=== PATIENT | male | born 1960 | race Caucasian/White ===

== ENCOUNTER 2018-02-24 14:04 | Emergency (ER) | payer BC ==
[2018-02-24 15:16] VITALS: RESP 16; TEMP 97.8
[2018-02-24] MEDS ORDERED: MECLIZINE 25 MG TAB PO STA (17:36)
[2018-02-24] MEDS ORDERED: SODIUM CHLORIDE 0.9% 1,000 ML IV ONE (17:36)
[2018-02-24 17:45] LABS: Basophils # (A) 0.1 k/uL (0-0.2); Basophils % (A) 1 %; Eosinophils # (A) 0.2 k/uL (0-0.7); Eosinophils % (A) 2 %; HCT 53.5 % (39.0-53.0); HGB 17.2 gm/dL (13.0-17.5); Lymphocytes # (A) 2.2 k/uL (1.0-4.8); Lymphocytes % (A) 21 %; MCH 31.3 pg (25.0-35.0); MCHC 32.2 g/dL (31.0-37.0); MCV 97.3 fL (80.0-100.0); Mean Platelet Volume 6.3; Monocytes # (A) 0.4 k/uL (0-1.0); Monocytes % (A) 4 %; Neutrophils # (A) 7.4 k/uL (1.3-7.7); Neutrophils % (A) 71 %; Platelet Count 362 k/uL (150-450); RDW 14.3 % (11.5-15.5); WBC 10.4 k/uL (3.8-10.6)
[2018-02-24 17:48] LABS: Prothrombin Time 10.1 sec (9.0-12.0)
--- NOTE | 2018-02-24 17:51 | ED ---
Dizziness HPI - General Chief Complaint: Dizziness Stated Complaint: Dizzy Time Seen by Provider: 02/24/18 17:35 Source: patient, RN notes reviewed Mode of arrival: wheelchair Limitations: no limitations - History of Present Illness Initial Comments: This is a 57-year-old male presents emergency Department with chief complaint of dizziness. Patient states that initially started on but woke up finding felt better but symptoms returned again today. Patient states that is much worse when he tries to move. He states it is better at rest. Patient did start recently have a headache in the right posterior aspect. Patient states this started after symptoms of dizziness. He denies any blurred vision. He has had some nausea denies chest pain, shortness of breath, focal weakness, fever, chills no recent URI symptoms. Patient does take medication currently for hypertension. Patient denies any palpitations, abdominal pain, back pain. - Related Data Home Medications Medication Instructions Recorded Confirmed Lisinopril [Zestril] 5 mg PO DAILY 09/14/15 11/09/15 Metoprolol Tartrate 50 mg PO DAILY 09/14/15 11/09/15 Previous Rx's Medication Instructions Recorded Aspirin 325 mg PO BID #60 tab 11/10/15 Famotidine [Pepcid] 20 mg PO DAILY #30 tablet 11/10/15 Hydrocodone/Acetaminophen [[place] 1 each PO Q6H PRN #60 tab 11/10/15 10-325] traMADol HCl [Ultram] 50 mg PO Q6H PRN #40 tab 11/10/15 Meclizine [Antivert] 25 mg PO TID PRN #15 tab 02/24/18 Allergies Allergy/AdvReac Type Severity Reaction Status Date / Time No Known Allergies Allergy Verified 11/09/15 13:36 Review of Systems ROS Statement: Those systems with pertinent positive or pertinent negative responses have been documented in the HPI. ROS Other: All systems not noted in ROS Statement are negative. Past Medical History Past Medical History: Hypertension, Osteoarthritis (OA) Additional Past Medical History / Comment(s): had stress test today History of Any Multi-Drug Resistant Organisms: None Reported Past Surgical History: Appendectomy, Hernia Repair, Orthopedic Surgery Additional Past Surgical History / Comment(s): right knee surgery, ORIF left elbow & left hip Past Anesthesia/Blood Transfusion Reactions: No Reported Reaction Past Psychological History: No Psychological Hx Reported Smoking Status: Current every day smoker Past Alcohol Use History: Occasional Past Drug Use History: None Reported - Past Family History Mother Family Medical History: No Reported History General Exam Limitations: no limitations General appearance: alert, in no apparent distress Head exam: Present: atraumatic, normocephalic, normal inspection Eye exam: Present: normal appearance, PERRL, EOMI. Absent: scleral icterus, conjunctival injection, periorbital swelling ENT exam: Present: normal exam, normal oropharynx, mucous membranes moist, TM's normal bilaterally, normal external ear exam Neck exam: Present: normal inspection, full ROM. Absent: tenderness, meningismus, lymphadenopathy Respiratory exam: Present: normal lung sounds bilaterally. Absent: respiratory distress, wheezes, rales, rhonchi, stridor Cardiovascular Exam: Present: regular rate, normal rhythm, normal heart sounds. Absent: systolic murmur, diastolic murmur, rubs, gallop, clicks GI/Abdominal exam: Present: soft, normal bowel sounds. Absent: distended, tenderness, guarding, rebound, rigid Neurological exam: Present: alert, oriented X3, CN II-XII intact, reflexes normal. Absent: motor sensory deficit Skin exam: Present: warm, dry, intact, normal color. Absent: rash Course Vital Signs 02/24/18 02/24/18 15:13 19:04 Temperature 97.8 F Pulse Rate 52 L 61 Respiratory 16 16 Rate Blood Pressure 147/89 155/88 O2 Sat by Pulse 98 98 Oximetry EKG Findings - EKG Comments: EKG Findings:: EKG performed at 17:12 bradycardia at rate of 48 [place] 170 QS 90 QT/ QTC 502/409 Medical Decision Making - Medical Decision Making 57-year-old male present emergency department with chief complaint of dizziness. Patient had lab work, EKG, given IV fluids Reglan and Antivert. Patient states he does feel much better at this time no when doing orthostatics he did have an elevated heart rate and possible proximal A. fib. Repeat EKG was performed which showed sinus bradycardia again. Patient states that he feels better. Patient was advised to stay in the hospital secondary to his dizziness, possible proximal A. fib though patient refuses. He does understand wrist. Does understand that he needs to have his heart rate monitored, blood pressure monitor. Patient will follow-up with on-call the doctor Ellie. Patient was given strict return parameters. - Lab Data Result diagrams: 02/24/18 17:08 02/24/18 17:08 Lab Results 02/24/18 02/24/18 02/24/18 Range/Units 17:08 17:08 17:08 WBC 10.4 (3.8-10.6) k/uL RBC 5.50 (4.30-5.90) m/uL Hgb 17.2 (13.0-17.5) gm/dL Hct 53.5 H (39.0-53.0) % MCV 97.3 (80.0-100.0) fL MCH 31.3 (25.0-35.0) pg MCHC 32.2 (31.0-37.0) g/dL RDW 14.3 (11.5-15.5) % Plt Count 362 (150-450) k/uL Neutrophils % 71 % Lymphocytes % 21 % Monocytes % 4 % Eosinophils % 2 % Basophils % 1 % Neutrophils # 7.4 (1.3-7.7) k/uL Lymphocytes # 2.2 (1.0-4.8) k/uL Monocytes # 0.4 (0-1.0) k/uL Eosinophils # 0.2 (0-0.7) k/uL Basophils # 0.1 (0-0.2) k/uL PT 10.1 (9.0-12.0) sec INR 1.0 (<1.2) Sodium 140 (137-145) mmol/L Potassium 4.6 (3.5-5.1) mmol/L Chloride 104 (98-107) mmol/L Carbon Dioxide 28 (22-30) mmol/L Anion Gap 8 mmol/L BUN 23 H (9-20) mg/dL Creatinine 1.03 (0.66-1.25) mg/dL Est GFR (CKD-EPI)AfAm >90 (>60 ml/min/1.73 sqM) Est GFR (CKD-EPI)NonAf 82 (>60 ml/min/1.73 sqM) Glucose 113 H (74-99) mg/dL Calcium 10.5 H (8.4-10.2) mg/dL Magnesium (1.6-2.3) mg/dL Total Bilirubin 0.7 (0.2-1.3) mg/dL AST 23 (17-59) U/L ALT 35 (21-72) U/L Alkaline Phosphatase 92 (38-126) U/L Troponin I (0.000-0.034) ng/mL Total Protein 7.6 (6.3-8.2) g/dL Albumin 4.5 (3.5-5.0) g/dL 02/24/18 02/24/18 Range/Units 17:08 17:08 WBC (3.8-10.6) k/uL RBC (4.30-5.90) m/uL Hgb (13.0-17.5) gm/dL Hct (39.0-53.0) % MCV (80.0-100.0) fL MCH (25.0-35.0) pg MCHC (31.0-37.0) g/dL RDW (11.5-15.5) % Plt Count (150-450) k/uL Neutrophils % % Lymphocytes % % Monocytes % % Eosinophils % % Basophils % % Neutrophils # (1.3-7.7) k/uL Lymphocytes # (1.0-4.8) k/uL Monocytes # (0-1.0) k/uL Eosinophils # (0-0.7) k/uL Basophils # (0-0.2) k/uL PT (9.0-12.0) sec INR (<1.2) Sodium (137-145) mmol/L Potassium (3.5-5.1) mmol/L Chloride (98-107) mmol/L Carbon Dioxide (22-30) mmol/L Anion Gap mmol/L BUN (9-20) mg/dL Creatinine (0.66-1.25) mg/dL Est GFR (CKD-EPI)AfAm (>60 ml/min/1.73 sqM) Est GFR (CKD-EPI)NonAf (>60 ml/min/1.73 sqM) Glucose (74-99) mg/dL Calcium (8.4-10.2) mg/dL Magnesium 2.2 (1.6-2.3) mg/dL Total Bilirubin (0.2-1.3) mg/dL AST (17-59) U/L ALT (21-72) U/L Alkaline Phosphatase (38-126) U/L Troponin I <0.012 (0.000-0.034) ng/mL Total Protein (6.3-8.2) g/dL Albumin (3.5-5.0) g/dL Disposition Clinical Impression: Dizziness, Bradycardia Disposition: HOME SELF-CARE Condition: Stable Instructions: Dizziness (ED) Additional Instructions: Please return to the Emergency Department if symptoms worsen or any other concerns. Prescriptions: Meclizine [Antivert] 25 mg PO TID PRN #15 tab PRN Reason: Vertigo Is patient prescribed a controlled substance at d/c from ED?: No Referrals: None,Stated [Primary Care Provider] - 1-2 days Jayson Argueta MD [STAFF PHYSICIAN] - 1-2 days Time of Disposition: 20:15
[2018-02-24 17:56] LABS: ALT 35 U/L (21-72); AST 23 U/L (17-59); Albumin 4.5 g/dL (3.5-5.0); Alkaline Phosphatase 92 U/L (38-126); Anion Gap 8 mmol/L; Blood Urea Nitrogen 23 mg/dL (9-20); Calcium 10.5 mg/dL (8.4-10.2); Carbon Dioxide 28 mmol/L (22-30); Chloride 104 mmol/L (98-107); Glucose 113 mg/dL (74-99); Potassium 4.6 mmol/L (3.5-5.1); Sodium 140 mmol/L (137-145); Total Bilirubin 0.7 mg/dL (0.2-1.3); Total Protein 7.6 g/dL (6.3-8.2)
[2018-02-24] MEDS ORDERED: METOCLOPRAMIDE 5 MG/ML 2 ML VIAL IVP STA (18:38)
--- NOTE | 2018-02-24 18:51 | CT ---
EXAMINATION TYPE: CT brain wo con DATE OF EXAM: 02/24/2018 COMPARISON: None INDICATION: Headache/dizziness. DLP: 800.2 mGycm, Automated exposure control for dose reduction was used. CONTRAST: None CT of the brain is performed utilizing 3 mm thick sections through the posterior fossa and 3 mm thick sections through the remaining calvarium. Study is performed within 24 hours of arrival to the hosp [facility]. No abnormal hyperdensity is present to suggest an acute intracranial hemorrhage. No mass lesion is evident. No acute infarcts are evident. Ventricles and sulci are appropriate for the patient age. Paranasal sinuses and mastoid air cells within the [id number] are clear. IMPRESSIONS: 1. Normal CT Brain
[2018-02-24 20:50] VITALS: BP 177/94; PULSE 158
== END 2018-02-24 21:11 | disposition home or self-care (01) ==
LOC: EC 14:04
DX: R00.1 Bradycardia, unspecified (principal); R42 Dizziness and giddiness; R51 Headache; I10 Essential (primary) hypertension; M19.90 Unspecified osteoarthritis, unspecified site; F17.200 Nicotine dependence, unspecified, uncomplicated; Z79.899 Other long term (current) drug therapy; Z98.890 Other specified postprocedural states
CPT/HCPCS: 36415; 93005; 80053; 83735; 84484; 85025; 85610; 70450; 99284; 96374; 96361; J2765

== ENCOUNTER → 2019-09-10 | Outpatient (CLI) | payer OTHER ==
--- NOTE | 2019-09-10 10:54 | XR ---
Left elbow HISTORY: Pain, arthritis 2 views of the left elbow Postop changes are noted to the proximal ulna. 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 There is marginal spurring and bilateral joint space loss, remodeling. Bone mineralization and alignment are maintained. No acute fracture or dislocation. No evident joint effusion. IMPRESSION: Osteoarthritis, synovial osteochondromatosis.
== END | disposition home or self-care (01) ==
LOC: RADXRMAIN 09:44
PROVIDERS: ATTEND Family Medicine
DX: D48.0 Neoplasm of uncertain behavior of bone and articular cartilage (principal); M19.022 Primary osteoarthritis, left elbow

== ENCOUNTER → 2023-05-19 | Outpatient (CLI) | payer MEDICARE | END | disposition home or self-care (01) | LOC: LABWHC1 15:05 | PROVIDERS: ATTEND Orthopaedic Surgery | DX: Z01.812 Encounter for preprocedural laboratory examination (principal); Z22.322 Carrier or suspected carrier of Methicillin resistant Staphylococcus aureus; M16.11 Unilateral primary osteoarthritis, right hip | CPT/HCPCS: 86850; 86900; 86901; 87070 ==

== ENCOUNTER 2023-05-23 08:12 | Day surgery (SDC) | payer MEDICARE, OTHER ==
[2023-05-19 13:38] VITALS: BMI 27.3
--- NOTE | 2023-05-22 08:23 | P.HPOR ---
History of Present Illness H&P Date: 05/22/23 Chief Complaint: Right hip pain The patient is a 62-year-old male who presents with progressive right hip pain for the past several years worsening over the past 6 months. He notes anterior groin and thigh pain worse with any weightbearing activities along with standing from a seated position. He notes stiffness along with nighttime symptoms. He has tried medications without much relief. He notes daily pain that limits his normal function and activities. Review of Systems Negative except as in HPI Past Medical History Past Medical History: Hypertension, Osteoarthritis (OA) Additional Past Medical History / Comment(s): SOB a couple months ago, better now. History of Any Multi-Drug Resistant Organisms: None Reported Past Surgical History: Appendectomy, Hernia Repair, Orthopedic Surgery Additional Past Surgical History / Comment(s): Right knee surgery, ORIF left elbow and left hip. Past Anesthesia/Blood Transfusion Reactions: No Reported Reaction Past Psychological History: No Psychological Hx Reported Smoking Status: Current every day smoker Past Alcohol Use History: Occasional Additional Past Alcohol Use History / Comment(s): Smoker of 1ppd for 35+ yrs. Past Drug Use History: None Reported - Past Family History Mother Family Medical History: Cancer Additional Family Medical History / Comment(s): Skin cancer behind eye, 05/18/23. Father Family Medical History: Cancer Medications and Allergies Home Medications Medication Instructions Recorded Confirmed Type Albuterol Sulfate [Albuterol 2 puff PO QID PRN 05/19/23 05/19/23 History Sulfate Hfa] Chlorthalidone 25 mg PO DAILY 05/19/23 05/19/23 History Hydrocodone/Acetaminophen [[place] 0.5 tab PO QID PRN 05/19/23 05/19/23 History 10-325] Losartan Potassium 100 mg PO QAM 05/19/23 05/19/23 History Multivitamins, Thera [Multivitamin 1 tab PO DAILY 05/19/23 05/19/23 History (formulary)] [place]-3/Dha/Epa/Fish Oil [Fish Oil 1 each PO DAILY 05/19/23 05/19/23 History 1,000 mg Softgel] Allergies Allergy/AdvReac Type Severity Reaction Status Date / Time No Known Allergies Allergy Verified 05/19/23 13:08 Physical Examination - Hip right Gait: antalgic Tenderness with palpation: anterior Pain with motion: internal rotation and hip flexion ROM: flexion: 60 degrees ROM: internal rotation: 0 degrees (With pain) ROM: external rotation: 40 degrees Crepitus with motion: Yes Strength: extension: 5/5 Strength: flexion: 5/5 Strength: abduction: 5/5 Tests: impingement tests: positive Results The patient is a well-developed well-nourished male proximally 5 foot 8, 180 pounds of mesomorphic habitus. HEENT exam is nonfocal, neck is supple. He has painful passive motion of the right hip. Straight leg raise is negative. His distal neurovascular exam appears intact right lower extremity. - Diagnostic results Hip x-ray: image reviewed (AP and lateral views of right hip show severe osteoarthrosis with [id number] changes.) Assessment and Plan Assessment: Right hip severe osteoarthrosis Plan: I talked to the patient at length regarding his condition along with treatment options. At this point he is quite symptomatic secondary to pain related to his right hip osteoarthrosis despite conservative measures. After a thorough discussion to proceed with surgery. We'll plan to proceed with right total hip arthroplasty utilizing an anterior approach. Risks and benefits were discussed at length and Kevin turns. We will institute DVT prophylaxis postoperatively.
[~2023-05-23 08:12] MED LIST: ACETAMINOPHEN TAB 500 MG TAB PO PRN; MELOXICAM 7.5 MG TAB PO PRN; TRANEXAMIC 1,000 MG/100ML-NACL 1,000 MG in SALINE 1 100ML.BAG IVPB PRN
[2023-05-23] MEDS ORDERED: DEXAMETHASONE SOD PHOSPHATE 4 MG/ML 1 ML VIAL IV ONE (08:25)
[2023-05-23] MEDS ORDERED: LIDOCAINE 1% (10MG/ML) FOR IV START INTRADERMA PRN (08:25)
[2023-05-23] MEDS ORDERED: ONDANSETRON 4 MG/2 ML VIAL IVP ONE (08:25)
[2023-05-23] MEDS ORDERED: MIDAZOLAM 2 MG/2 ML VIAL IV PRN (08:25)
[2023-05-23] MEDS: LACTATED RINGERS 1,000 ML IV SCH ×2 (08:56→11:20)
[2023-05-23] MEDS ORDERED: MIDAZOLAM 2 MG/2 ML VIAL IVP ONE (09:44)
[2023-05-23] MEDS ORDERED: fentaNYL (PF) 50 MCG/ML 2 ML AMP IVP ONE (09:45)
--- NOTE | 2023-05-23 09:56 | P.ANPRN ---
Procedure Note - Anesthesia - Nerve Block Performed Right James Single Time Out Performed: Yes Date of Procedure: 05/23/23 Procedure Start Time: 09:44 Procedure Stop Time: 09:51 Location of Patient: PreOp Indication: Acute Post-Operative Pain, Requested by Surgeon Sedation Type: Sedate with meaningful contact maintained Preparation: Sterile Prep Position: Supine Needle Types: Pajunk Needle Gauge: 21 Ultrasound used to visualize needle placement: Yes Ultrasound used to observe medication spread: Yes Injectate: 0.5% Ropivacaine (see comment for volume) (Ropiva 0.5% 15ml+10 ml NS+ [id number]) Blood Aspirated: No Pain Paresthesia on Injection Noted: No Resistance on Injection: Normal Image Stored and Saved: Yes Events: Uneventful and Well Tolerated
[2023-05-23] MEDS ORDERED: ceFAZolin 1,000 MG in SODIUM CHLORIDE 0.9% 1,000 ML IRRIGATION ONE (11:30)
[2023-05-23] MEDS ORDERED: hydrOXYzine pamoate 25 MG CAP PO PRN (13:42)
[2023-05-23] MEDS ORDERED: HYDROcodone/APAP 5-325MG 1 EACH TAB PO PRN (13:42)
[2023-05-23] MEDS ORDERED: NALOXONE 0.4 MG/ML 1 ML VIAL IV PRN (13:42)
[2023-05-23] MEDS ORDERED: HYDROmorphone 0.5 MG/0.5 ML SYRINGE IVP PRN (13:42)
[2023-05-23] MEDS ORDERED: MAGNESIUM HYDROXIDE 2,400 MG/30 ML CUP PO PRN (13:42)
[2023-05-23] MEDS ORDERED: HYDROmorphone 1 MG/ML 1 ML SYRINGE IVP PRN (13:42)
--- NOTE | 2023-05-23 14:00 | P.OP ---
Date of Procedure: 05/23/23 Preoperative Diagnosis: Right hip severe osteoarthrosis Postoperative Diagnosis: Same Procedure(s) Performed: Right total hip arthroplastypress-fitanterior approach Implants: Depuy Corail size 11/135/standard press-fit collared femoral stem, 36+5 cobalt chrome femoral head, 56 mm [place] acetabular shell with neutral polyethylene liner. Anesthesia: spinal Surgeon: Burke Chao Welder Tech #1: Bruno Mandel Estimated Blood Loss (ml): 150 Pathology: none sent Condition: stable Disposition: PACU Indications for Procedure: The patient is a 62-year-old male presents with progressive right hip pain secondary osteoarthrosis despite conservative measures. A discussion of the risks and benefits of operative intervention versus continued conservative measures was made with patient. He opted to proceed with surgery. Operative risks to include infection, neurovascular injury, fracture, leg length discrepancy, instability, possible component loosening/failure need for subsequent procedures was discussed. Informed consent was obtained. Operative Findings: As below Description of Procedure: The patient was brought to the operating room, and after induction of spinal anesthesia was placed supine on the Gladis table. Positioning was checked with fluoroscopy. The right hip was then prepped and draped in a normal fashion. A 12 cm incision was then made starting 2 fingerbreadths distal and 3 finger breaths posterior to the ASIS in line with the proximal femur. The skin was incised sharply. Subcutaneous tissues were divided sharply. Electrocautery was used for hemostasis. The fascia was split in line with skin incision. The interval between the sartorius and tensor fascia levi was then bluntly developed. The posterior fascia was opened with electrocautery. The lateral circumflex vessels were identified and cauterized prior to sectioning. A retractor was placed along the superior femoral neck as well as the anterior acetabular rim. A wide capsulotomy was performed. The neck cut was then made at a 45 angle to the shaft approximately 1 1/2 cm above the level of the lesser trochanter. The head was extracted. Attention was then paid towards preparing the acetabular. Anterior and posterior retractors were placed. The remaining capsular labral tissue sharply debrided clearly defining the acetabular margins. I began reaming with a 49 mm reamer taking care to initially medialize then reaming at 45 of abduction and 20 of anteversion. Sequential reaming is performed up to 55 mm. A trial 56 mm acetabular shell was inserted in the same orientation and was fully seated. There was good rim fit and stability. Positioning was checked with fluoroscopy. The final 56 mm acetabular shell was inserted again at 45 of abduction and 20 of anteversion. This was fully seated. There was good rim fit and stability. Again fluoroscopy was used to check the adequacy of placement. A neutral polyethylene liner was gently impacted. Care was taken to avoid any soft tissue interposition. Pulsatile lavage was utilized. Attention was then paid towards preparing the proximal femur. The central region was cleared of soft tissue. A canal finder was used to find the femoral canal. Sequential broaching was performed up to size 11 taking care to lateralize proximally. A calcar mill was used to fashion the medial calcar. There was good rotational stability. A standard neck along with a 36 mm +5 femoral head was placed. The hip was gently reduced. Fluoroscopy was used to check the adequacy of positioning along with leg lengths. I felt both were good. The hip was gently dislocated. The trial components were removed. The final size 11 collared standard press-fit femoral stem was inserted parallel to the posterior cortex. This was fully seated and there was good rotational stability. A 36 mm +5 head was placed. This was gently impacted. The hip was then gently reduced. Final fluoroscopic view showed adequate placement implant along with presybeterian of leg length. Stability was checked with 80 of external rotation and 60 of extension of the right hip. The wound was irrigated with sterile lavage. The fascia was closed with running 0 Vicryl suture. There was minimal drainage therefore a deep drain was not placed. The second dose of IV TXA was given. The subcutaneous tissues were reapproximated interrupted 2-0 Vicryl sutures. The skin was reapproximated with 3-0 subcuticular strata fix suture. Skin tape and adhesive was applied. A sterile dressing was applied. The patient was then awoken from sedation and transferred to recovery room in good condition. Blood loss was estimated at 150 mL. No complications were incurred. Sponge and needle counts were correct at the end of the case. Bruno MCKINLEY assisted during the major components is case to include exposure, bone resection, implantation, and closure.
[2023-05-23] MEDS: HYDROmorphone 0.5 MG/0.5 ML SYRINGE IVP PRN ×6 (14:14→15:28)
--- NOTE | 2023-05-23 14:30 | XR ---
EXAMINATION TYPE: XR Hip Limited RT DATE OF EXAM: 05/23/2023 Comparison: None Clinical History: 62-year-old male Status post hip surgery, assess surgical alignment Findings: Image shows placement of right total hip arthroplasty. Acetabular cup and femoral stem components of the prosthesis appear well seated without periprosthetic fracture. Alignment grossly anatomic. Soft t issue air related to recent operation. Impression: Uncomplicated postoperative appearance right total hip arthroplasty.
--- NOTE | 2023-05-23 15:01 | FL ---
EXAMINATION TYPE: FL guidance operating room, XR Hip Limited RT DATE OF EXAM: 05/23/2023 Comparison: None Clinical History: 62-year-old male RIGHT ANTERIOR HIP Findings: Intraoperative fluoroscopy during placement of right total hip arthroplasty. 31 SEC FLUORO, 1.7896 Gycm2, 8 images are provided. Impression: Intraoperative fluoroscopy as above.
[2023-05-23] MEDS: HYDROcodone/APAP 10-325MG 1 EACH TAB PO PRN (18:21)
[2023-05-23] MEDS ORDERED: SENNOSIDES-DOCUSATE SODIUM 1 EACH TAB PO SCH (21:00)
[2023-05-24 07:55] VITALS: BP 100/66; PULSE 79; TEMP 97.9
[2023-05-24] MEDS ORDERED: RIVAROXABAN 10 MG TAB PO SCH (09:00)
[2023-05-24 09:22] LABS: Basophils # (A) 0.02 X 10*3/uL (0.00-0.10); Basophils % (A) 0.1 %; Eosinophils # (A) 0.05 X 10*3/uL (0.04-0.35); Eosinophils % (A) 0.4 %; HCT 34.8 % (39.6-50.0); HGB 11.4 d/dL (13.0-17.0); Lymphocytes # (A) 2.22 X 10*3/uL (0.90-5.00); Lymphocytes % (A) 16.4 %; MCH 29.9 pg (27.0-32.0); MCHC 32.8 d/dL (32.0-37.0); MCV 91.3 FL (80.0-97.0); Monocytes # (A) 0.94 X 10*3/uL (0.20-1.00); NRBC Per 100 WBC 0 X 10*3/uL (0.00-0.01); Neutrophils # (A) 10.21 X 10*3/uL (1.80-7.70); Neutrophils % (A) 75.7 %; Platelet Count 401 X 10*3/uL (140-440); RBC 3.81 X 10*6/uL (4.40-5.60); RDW 14.4 % (11.5-14.5)
[2023-05-24] MEDS: HYDROcodone/APAP 10-325MG 1 EACH TAB PO PRN (10:16)
--- NOTE | 2023-05-24 10:47 | P.DS ---
Providers Date of admission: 05/23/2023 Expected date of discharge: 05/24/23 Attending physician: Burke Chao Consults: 05/23/23 13:47 Consult Physician Routine Consulting Provider: Austin Burnett Consult Reason/Comments: Medical Management s/p right total hip replacement Do you want consulting provider notified?: Yes Primary care physician: Austin Burnett Hospital Course: Date of admission: 05/23/2023 Date of discharge: 05/24/2023 Admission diagnosis: Right hip osteoarthritis Discharge diagnosis: Same Attending physician: Dr. Chao Surgical procedures: Right total hip arthroplasty Brief history: Patient is a 62-year-old male with a history of progressive primary right hip osteoarthritis. At this point patient has failed conservative treatment measures and has opted to proceed with a elective right total hip arthroplasty. Hospital course: Details of patient's surgery can be found in operative report. Patient tolerated the procedure well and was subsequently transported to orthopedic floor. Patient's orthopeidc and medical care was provided daily. Patient had daily laboratory tests performed for evaluation of overall blood counts. Patient had daily physical therapy to include strengthening range of motion as well as education with walker ambulation. Patient was treated with Xarelto for their postoperative DVT prophylaxis during their inpatient stay. Patient was noted to have a relatively uneventful postoperative course. Patient reported satisfactory pain control with oral pain medications by postoperative day 1. Patient showed satisfactory progress with physical therapy. Patient moved steadily through the program and had no difficulty meeting the goals by postoperative day 1. Given patient's otherwise satisfactory course and having met physical therapy goals, plan is to discharge patient home with health services on postoperative day 1. Discharge condition/disposition: Patient will be discharged home with health services in stable condition. Discharge medications: Instructions are given on resumption of patient's normal daily medications per primary care recommendation, in addition patient will be prescribed [place]; senna; Eliquis 2.5 mg twice a day 2 weeks. Discharge instructions: 1. Wound care and infection precautions, keep incision dry and covered while showering, no lotions, creams, moisturizers. No soaking, tubs, pools, hottubs. Do not scrub over the incision. 2. Weight-bear as tolerated with walker / cane until follow-up. 3. Ice and elevate when necessary. Do not exceed 20 minutes per hour with ice pack. 4. Utilize compression sleeve until seen at first follow up appointment. 5. Visiting nursing care. 6. Home physical therapy. 7. Pain meds and anticoagulants per prescription. 8. Pain medication has potential to cause constipation. Increase oral fluid and fiber intake. Contact primary care provider if you have not had a bowel movement within 48 hours after discharge 9. No anti-inflammatory medication until discussed at first post operative visit, this including Motrin, Aleve, Mobic, Diclofenac. 10. Follow up in office at 2 weeks postop with John Corbett PA-C / Bruno Mandel PA-C 11. Follow up with your primary care doctor 7-10 days after discharge. 12. Contact [facility] with any questions, . Keep incision clean, dry, intact. While showering, cover fusion tape with Saran wrap. Keep fusion tape on until follow-up appointment in office in 2 weeks Assessment: Right hip osteoarthritis Procedures: Right total hip arthroplasty Patient Condition at Discharge: Good Plan - Discharge Summary Discharge Rx Participant: Yes New Discharge Prescriptions: No Action Losartan Potassium 100 mg PO QAM Hydrocodone/Acetaminophen [[place] 10-325] 0.5 tab PO QID PRN PRN Reason: Pain [place]-3/Dha/Epa/Fish Oil [Fish Oil 1,000 mg Softgel] 1 each PO DAILY Albuterol Sulfate [Albuterol Sulfate Hfa] 2 puff PO QID PRN PRN Reason: Shortness Of Breath Chlorthalidone 25 mg PO DAILY Multivitamins, Thera [Multivitamin (formulary)] 1 tab PO DAILY Discharge Medication List Albuterol Sulfate [Albuterol Sulfate Hfa] 2 puff PO QID PRN 05/19/23 [History] Chlorthalidone 25 mg PO DAILY 05/19/23 [History] Hydrocodone/Acetaminophen [[place] 10-325] 0.5 tab PO QID PRN 05/19/23 [History] Losartan Potassium 100 mg PO QAM 05/19/23 [History] Multivitamins, Thera [Multivitamin (formulary)] 1 tab PO DAILY 05/19/23 [History] [place]-3/Dha/Epa/Fish Oil [Fish Oil 1,000 mg Softgel] 1 each PO DAILY 05/19/23 [History] Follow up Appointment(s)/Referral(s): Bruno Mandel PAC [PHYSICIAN RN RADIATION ONCOLOGY] - 2 Weeks Patient Instructions/Handouts: Anterior Hip Replacement (DC) Activity/Diet/Wound Care/Special Instructions: Orthopedic Discharge Instructions: 1. Wound care and infection precautions, keep incision dry and covered while showering, no lotions, creams, moisturizers. No soaking, pools, hot tubs. Do not scrub over incision. 2. Weight-bear as tolerated with walker / cane until follow-up. 3. Ice and elevate when necessary. Do not exceed 20 minutes per hour with ice pack. 4. Utilize compression sleeve until seen at first follow up appointment. 5. Pain meds and anticoagulants per prescription. 6. Pain medication has potential to cause constipation. Increase oral fluid and fiber intake. Contact primary care provider if you have not had a bowel movement within 48 hours after discharge. 7. No anti-inflammatory medication until discussed at first post operative visit, this including Motrin, Aleve, Mobic, Diclofenac. 8. Follow up in office at 2 weeks postop with John Corbett PA-C / Bruno Mandel PA-C 9. Follow up with your primary care doctor 7-10 days after discharge. 10. Contact [facility] with any questions, . Keep incision clean, dry, intact. While showering, cover fusion tape with Saran wrap. Keep fusion tape on until follow-up appointment in office in 2 weeks. Discharge Disposition: HOME WITH HOME HEALTH SERVICES
--- NOTE | 2023-05-24 10:49 | P.PN ---
Subjective Progress Note Date: 05/24/23 Principal diagnosis: Right hip osteoarthritis Patient was seen at bedside this morning seeing up in chair. Patient says he just been shortened physical therapy and walk down the [place] and up-and-down stairs. Patient says she is looking forward to going home later today. Patient says he does not have a walker at home. Patient says the pain is well- controlled. Patient says he has urinated several times since surgery yesterday. Patient says he has been passing gas, however, patient says he has not had bowel movement yet. Patient says most the pain is located at the right hip and denies radiation of pain. Patient denies chest pain, fever, shortness breath, nausea, vomiting, change in vision, loss of bowel/bladder control. Objective - Vital Signs Vital signs: Vital Signs Temp 97.9 F 05/24/23 07:40 Pulse 79 05/24/23 07:40 Resp 17 05/24/23 07:40 BP 100/66 05/24/23 07:40 Pulse Ox 96 05/24/23 07:40 FiO2 Intake & Output 05/23/23 05/24/23 05/24/23 18:59 06:59 18:59 Intake Total 2331 Output Total 150 600 Balance 2181 -600 Weight 83.1 kg Intake: IV 2251 Intake, IV Titration 80 Amount Lactated Ringers 1,000 ml 80 @ 20 mls/hr IV .Q24H [facility] Rx#:[id number] Output: Urine 600 Estimated Blood Loss 150 Other: Voiding Method Toilet Urinal # Voids 1 - Exam Right hip: Incision is clean, dry, and intact. The exofin fusion tape is in good condition. There is minimal soft tissue swelling and ecchymosis surrounding the medial and lateral aspects of the incision. Calf is soft, no tenderness with palpation. Plantar flexion, dorsiflexion, EHL, FHL are intact. Sensory exam to light touch throughout the extremity is intact, dorsal pedis pulses 2+. - Labs CBC & Chem 7: 05/24/23 05:09 Labs: Abnormal Lab Results - Last 24 Hours (Table) 05/24/23 Range/Units 05:09 WBC 13.50 H (4.50-10.00) X 10*3/uL RBC 3.81 L (4.40-5.60) X 10*6/uL Hgb 11.4 L (13.0-17.0) d/dL Hct 34.8 L (39.6-50.0) % MPV 9.0 L (9.5-12.2) FL Neutrophils # 10.21 H (1.80-7.70) X 10*3/uL Assessment and Plan Assessment: 1. Right hip osteoarthritis - Postoperative day #1 status post right total hip arthroplasty Plan: 1. Right hip osteoarthritis - right total hip arthroplasty performed yesterday, 05/23/2023. Patient stable at bedside this morning. Prescription for walker was signed. Weightbearing as tolerated with walker. Discharge home today with health services. 2. Appreciate medical management 3. Pain management - [place] 4. DVT prophylaxis - Xarelto in hospital. Going home with Eliquis 2.5 mg twice a day 2 weeks 5. GI prophylaxis - senna 6. PT/OT - weightbearing as tolerated with walker 7. Encourage incentive spirometer use 8. Discharge planning - discharge home today with health services. Time with Patient: Less than 30
[2023-05-24 12:31] VITALS: RESP 16
--- NOTE | 2023-05-25 08:01 | PN ---
PROGRESS NOTE CHIEF COMPLAINT: Arthritis, right hip. HISTORY OF PRESENT ILLNESS: This gentleman is doing well. He is not experiencing any chest pain, shortness of breath, confusion, etc. PHYSICAL EXAMINATION: CHEST: Clear. CARDIAC: Normal. ABDOMEN: Soft, nontender. IMPRESSION: Osteoarthritis of right hip. Recommendations none. He is doing well. MMODL / IJN: [id number] /
--- NOTE | 2023-05-25 08:01 | CONS ---
CONSULTATION CHIEF COMPLAINT: Arthritis of the right hip. HISTORY OF PRESENT ILLNESS: This gentleman has come in for an elective procedure for right hip replacement. He is doing well and is stable. REVIEW OF SYSTEMS: He denies any chest pain, shortness of breath, abdominal pain, nausea, vomiting, diarrhea, melena, frequency, urgency and dysuria, incontinence, nocturia, chills, fever, etc. Past medical history, family history and personal and social histories revealed only that he has a history of hypertension and COPD. ALLERGIES: He is not allergic to any medications. MEDICATIONS: He takes chlorthalidone 25 mg once a day, albuterol HFA, Vicodin 5/325 p.r.n., and Cozaar 100 mg once a day. He does continue to smoke. He does not drink. PHYSICAL EXAMINATION: VITAL SIGNS: Blood pressure is 142/82 with a pulse of 100, respirations 16, and temperature 97.5. GENERAL: He appeared to be well developed, well nourished, in no acute distress. SKIN: Color is normal. Skin is warm, dry. LYMPH NODES: Lymph nodes are not enlarged. HEAD, EARS, EYES, NOSE, MOUTH AND THROAT: Normal. NECK: Neck veins not distended. Thyroid is not enlarged. CHEST: Clear. CARDIAC: Normal. ABDOMEN: Soft and nontender. EXTREMITIES: Normal except for the right hip. Pulses are good. NEUROLOGICAL: Intact. IMPRESSION: He is admitted to the hospital with diagnosis of, 1. Osteoarthritis of the right hip. 2. Hypertension. 3. Chronic obstructive pulmonary disease. RECOMMENDATIONS: None. He is cleared for surgery. MMODL / IJN: [id number] /
== END 2023-05-24 12:27 | disposition home health service (06) ==
LOC: OR 08:12 → 4SSUR 13:54 → OR 05-24 12:27
PROVIDERS: ATTEND Orthopaedic Surgery
DX: M16.11 Unilateral primary osteoarthritis, right hip (principal); I10 Essential (primary) hypertension; J44.9 Chronic obstructive pulmonary disease, unspecified; F10.90 Alcohol use, unspecified, uncomplicated; F17.210 Nicotine dependence, cigarettes, uncomplicated; Z79.83 Long term (current) use of bisphosphonates; Z96.641 Presence of right artificial hip joint; Z98.890 Other specified postprocedural states; Z79.891 Long term (current) use of opiate analgesic; Z79.811 Long term (current) use of aromatase inhibitors; Z79.899 Other long term (current) drug therapy
CPT/HCPCS: 27130; 97161; 97166; 64447; 85025; 73501; C1776; J2250; J1100; J0690 ×3; J2405; J3010; J1170

== ENCOUNTER → 2023-08-14 | Outpatient (CLI) | payer MEDICARE ==
[2023-08-14 19:36] LABS: Basophils # (A) 0.13 X 10*3/uL (0.00-0.10); Basophils % (A) 1.4 %; Eosinophils # (A) 0.74 X 10*3/uL (0.04-0.35); Eosinophils % (A) 8.1 %; HCT 43.1 % (39.6-50.0); HGB 13.8 g/dL (13.0-17.0); Lymphocytes # (A) 2.31 X 10*3/uL (0.90-5.00); Lymphocytes % (A) 25.3 %; MCH 29.6 pg (27.0-32.0); MCV 92.3 FL (80.0-97.0); Mean Platelet Volume 9.8 FL (9.5-12.2); Monocytes # (A) 0.65 X 10*3/uL (0.20-1.00); Monocytes % (A) 7.1 %; NRBC Per 100 WBC 0 X 10*3/uL (0.00-0.01); Neutrophils # (A) 5.29 X 10*3/uL (1.80-7.70); Platelet Count 428 X 10*3/uL (140-440); RBC 4.67 X 10*6/uL (4.40-5.60); RDW 13.9 % (11.5-14.5); WBC 9.13 X 10*3/uL (4.50-10.00)
[2023-08-14 21:11] LABS: Anion Gap 9.8 mmol/L (4.00-12.00); Carbon Dioxide 33.2 mmol/L (21.6-31.8)
== END | disposition home or self-care (01) ==
LOC: LABPAT 15:24
PROVIDERS: ATTEND Orthopaedic Surgery Hand Surgery
DX: Z01.812 Encounter for preprocedural laboratory examination (principal)
CPT/HCPCS: 36415; 80051; 85025

== ENCOUNTER 2023-08-16 10:38 | Day surgery (SDC) | payer MEDICARE ==
[2023-08-11 16:09] VITALS: BMI 26.6
--- NOTE | 2023-08-15 10:21 | P.HPOR ---
History of Present Illness H&P Date: 08/15/23 Subjective: This is a 63 year old male that presents today for initial evaluation regarding a several year history of progressively worsening left posterior elbow pain and irritation. He states he injured the elbow in 2000 after falling off of a roof and had surgery done in [place] on his elbow. He's had minimal issues with the elbow up until last several years. He has noticed that one of the pins is prominent underneath the skin and causes sensitivity and pain when she bumps or puts pressure on the elbow. He denies any other area of pain. Physical Examination: LUE: AIN/PIN/Radial/Ulnar/Median motor intact. Radial/Ulnar/Median SILT. 2+/4 Radial/Ulnar pulses palpated. 5/5 APB, 5/5 FDI. Elbow ROM 10-120. Full pronation supination. Palpable k-wire in subcutaneous tissues. No skin breakdown present. Imaging: X-Rays of the left elbow three-view taken and office today demonstrates advanced degenerative changes at the ulnohumeral and radiocapitellar joint. Postsurgical changes consistent with tension band construct of healed olecranon fracture with backout of the K wire and tension band into subcutaneous tissues Impression: 1.) Left elbow irritating hardware Plan: Diagnosis and treatment options were discussed with the patient. He would like to have the implant removed due to persistent irritation of the prominent k- wire. He is scheduled for a left elbow removal of deep irritable orthopedic implant. Risks and benefits of surgery including bleeding, infection, damage to surrounding tissue, need for further surgery, residual numbness were discussed and the patient wished to go forward with surgery. The patient was agreeable with this plan. CC: Austin Burnett MD -John Mendoza DO Orthopedic Hand/Upper Extremity Surgeon Past Medical History Past Medical History: Hypertension, Osteoarthritis (OA) Additional Past Medical History / Comment(s): had stress test today History of Any Multi-Drug Resistant Organisms: None Reported Past Surgical History: Appendectomy, Hernia Repair, Orthopedic Surgery Additional Past Surgical History / Comment(s): right knee surgery, ORIF left elbow , BILAT [place] Past Anesthesia/Blood Transfusion Reactions: No Reported Reaction Smoking Status: Current every day smoker - Past Family History Mother Family Medical History: Cancer Additional Family Medical History / Comment(s): Skin cancer behind eye, 05/18/23. Father Family Medical History: Cancer Medications and Allergies Home Medications Medication Instructions Recorded Confirmed Type Chlorthalidone 25 mg PO DAILY 05/19/23 08/11/23 History Multivitamins, Thera [Multivitamin 1 tab PO DAILY 05/19/23 08/11/23 History (formulary)] HYDROcodone/APAP 10-325MG [[place] 1 tab PO Q6HR PRN #28 tab 05/24/23 08/11/23 Rx 10-325] Apixaban [Eliquis] 2.5 mg PO DAILY 08/11/23 08/11/23 History Allergies Allergy/AdvReac Type Severity Reaction Status Date / Time No Known Allergies Allergy Verified 08/11/23 15:37 Physical Examination Osteopathic Statement: *. No significant issues noted on an osteopathic structural exam other than those noted in the History and Physical/Consult.
[~2023-08-16 10:38] MED LIST changes: -ACETAMINOPHEN TAB 500 MG TAB PO PRN; +DEXAMETHASONE SOD PHOSPHATE 4 MG/ML 1 ML VIAL IV ONE; +HYDROmorphone 0.5 MG/0.5 ML SYRINGE IVP PRN; +LACTATED RINGERS 1,000 ML IV SCH; -MELOXICAM 7.5 MG TAB PO PRN; +ONDANSETRON 4 MG/2 ML VIAL IVP ONE; -TRANEXAMIC 1,000 MG/100ML-NACL 1,000 MG in SALINE 1 100ML.BAG IVPB PRN
[2023-08-16] MEDS ORDERED: DEXAMETHASONE SOD PHOSPHATE 4 MG/ML 1 ML VIAL IVP ONE (11:29)
[2023-08-16] MEDS ORDERED: ONDANSETRON 4 MG/2 ML VIAL IVP ONE (11:29)
[2023-08-16] MEDS ORDERED: MIDAZOLAM 2 MG/2 ML VIAL ONE (12:25)
[2023-08-16] MEDS ORDERED: fentaNYL (PF) 50 MCG/ML 2 ML AMP ONE (12:25)
[2023-08-16] MEDS ORDERED: ePHEDrine 50 MG/ML 1 ML VIAL ONE (12:25)
[2023-08-16] MEDS ORDERED: LIDOCAINE 1% INJ 10MG/ML (20 ML MDV) ONE (12:25)
[2023-08-16] MEDS ORDERED: PROPOFOL 10 MG/ML 20 ML VIAL IV ONE (12:25)
[2023-08-16] MEDS ORDERED: BUPIVACAINE (PF) 0.5% 30 ML VIAL SQ ONE ×2 (12:48)
[2023-08-16 13:42] VITALS: TEMP 97.7
--- NOTE | 2023-08-16 13:42 | P.OP ---
Date of Procedure: 08/16/23 Preoperative Diagnosis: Left elbow irritable deep orthopedic implant. Postoperative Diagnosis: Left elbow irritable deep orthopedic implant. Procedure(s) Performed: Left elbow removal of deep orthopedic implant x3 ( K-wire x 2 and 1 steel wire). Anesthesia: LYNNEA Surgeon: John Mendoza Hospital Plan Administrator #1: Bruno Mandel Estimated Blood Loss (ml): 0 Pathology: none sent Condition: stable Disposition: PACU Description of Procedure: This is a 63 year old male who underwent an olecranon ORIF over 20 years prior with a tension band construct that presents today for a several month history of prominent and irritation hardware located on the posterior aspect of the elbow and presents today for implant removal. Risks and benefits of surgery were discussed with the patient including bleeding, damage to surrounding tissue, infection, need for further surgery as well as risks of anesthesia including pulmonary embolism and even and the patient wished to proceed with surgical intervention. The patient was seen in the pre-operative area by myself. Consent and H&P were completed and updated. The correct extremity was marked in the pre-operative area by myself and all other questions were answered. Operative Narrative: The patient was brought to the operating room by the department of anesthesia. They remained on the portable stretcher and a rolling hand table was brought to the side of the operative extremity. Pre-operative time out was performed indicating the correct patient, procedure and laterality. All in the room agreed. Pre-operative antibiotics were given prior to skin incision. The patient was then drifted off to sleep by the department of anesthesia. A nonsterile tourniquet was then applied to the operative extremity and the left upper extremity was then prepped and draped in normal sterile fashion. The operative extremity was the exsanguinated with an esmarch bandage and the tourniquet was inflated to 250mmHg. Longitudinal incision was made near the site of the scar from his previous surgery. Blunt dissection was taken through subcutaneous tissues. The posterior K-wires were found to be prominent and loose. A needle driver license examiner was used to pull longitudinal traction on the k-wire and both were successfully removed. The wire portion of the tension band construct was then identified and dissected distally to the area of the the bone tunnel which it was passed through. The ulnar end was clipped flush to the bone surface and then threaded out the radial side of the bone tunnel in it's entirety. X-rays were taken to confirm complete hardware removal and union at the fracture site. The site was then irrigated with sterile saline. Layered closure was performed with 3-0 Vicryl suture followed by 3-0 nylon suture. The tourniquet was let down and the hand had immediate perfusion. Soft dressing with adaptic, 4x4s, cast padding and davian wrap was applied. The patient was then woken by the department of anesthesia and transferred to PACU in stable condition. Bruno MCKINLEY was present for the case to assist in manipulation of the extremity and hardware removal. John Mendoza D.O. Orthopedic Hand/Upper Extremity Surgeon
[2023-08-16 14:57] VITALS: BP 130/81; PULSE 80; RESP 14
== END 2023-08-16 15:12 | disposition home or self-care (01) ==
LOC: OR 10:38
PROVIDERS: ATTEND Orthopaedic Surgery Hand Surgery
DX: T84.84XA Pain due to internal orthopedic prosthetic devices, implants and grafts, initial encounter (principal); I10 Essential (primary) hypertension; M19.90 Unspecified osteoarthritis, unspecified site; F17.200 Nicotine dependence, unspecified, uncomplicated; Z79.01 Long term (current) use of anticoagulants; Z79.899 Other long term (current) drug therapy; Y83.8 Other surgical procedures as the cause of abnormal reaction of the patient, or of later complication, without mention of misadventure at the time of the procedure
CPT/HCPCS: 20680; J2250; J1100; J0690; J2405; J2001; J3010; J2704; J0665

== ENCOUNTER → 2024-08-07 | Outpatient (CLI) | payer MEDICARE ==
--- NOTE | 2024-08-07 14:44 | US ---
EXAMINATION TYPE: US kidneys/renal and bladder DATE OF EXAM: 08/07/2024 COMPARISON: NONE CLINICAL INDICATION: Male, 64 years old with history of N18.32 CKD STAGE 3B; TECHNIQUE: Grayscale imaging of the bilateral kidneys and urinary bladder: FINDINGS: EXAM MEASUREMENTS: Right Kidney: 9.7x4.9x5.6 cm Left Kidney: 10.0x5.1x4.2 cm Right Kidney: Anechoic area seen(lat/inf):1.6x1.6x1.7cm Left Kidney: ?Dilated renal pelvis Bladder: wnl Bilateral Jets seen: Yes IMPRESSION: 1. Small cyst at the inferior right kidney [facility], , 08/07/2024 2:41 PM
== END | disposition home or self-care (01) ==
LOC: RADUSWWP 14:13
PROVIDERS: ATTEND Family Medicine
DX: N18.32 Chronic kidney disease, stage 3b (principal); N28.1 Cyst of kidney, acquired
CPT/HCPCS: 76770